=== PATIENT | male | born 1955 | race Caucasian/White ===

== ENCOUNTER 2017-06-04 20:04 | Emergency (ER) | payer OTHER ==
[~2017-06-04] VITALS: Ht 188 cm; Wt 110.2 kg
[~2017-06-04 20:04] MED LIST: ONDA4TAB46 SL; OXYC1TAB3 PO; SERT50TA PO; TAMS0.4C38 PO
[2017-06-04 20:45] VITALS: TEMP 37.1; Ht 188 cm; Wt 110.2 kg
[2017-06-04] MEDS ORDERED: ONDANSETRON INJ 2 MG/ML 2 ML VIAL IV STA (21:12)
[2017-06-04] MEDS ORDERED: SODIUM CHLORIDE 0.9% 1000ML 1,000 ML IV STA (21:32)
[2017-06-04] MEDS ORDERED: MoRPHine SULFATE 4 MG/ML 1 ML CARP\\VIAL IV STA (21:32)
[2017-06-04 21:34] LABS: HEMATOCRIT 42.8 % (42-52); HEMOGLOBIN 15.1 g/dL (14.0-18.0); MEAN CELL VOLUME 85.8 fL (80-100); MEAN CORPUSCULAR HEMOGLOBIN 30.3 pg (25-34); MEAN CORPUSCULAR HGB CONC 35.3 g/dl (32-36); MEAN PLATELET VOLUME 9.4 fL (7.4-10.4); PLATELET COUNT 262 K/uL (130-400); RED CELL DISTRIBUTION WIDTH CV 13.3 % (11.5-14.5); RED CELL DISTRIBUTION WIDTH SD 41.8 fL (36.4-46.3); WHITE BLOOD COUNT 12.29 K/uL (4.8-10.8)
[2017-06-04 21:54] LABS: CALCIUM 9.4 mg/dl (8.5-10.1); CREATININE 1.64 mg/dl (0.60-1.40); POTASSIUM 3.9 mmol/L (3.5-5.1)
--- NOTE | 2017-06-04 22:41 | DIAGNOSTIC IMAGING REPORT ---
ABDOMEN AND PELVIS CT WITHOUT CONTRAST CT DOSE: 1837.79 mGy.cm HISTORY: Left flank pain, nausea, hx stones TECHNIQUE: Multiaxial CT images of the abdomen and pelvis were performed without the use of intravenous and oral contrast according to the standard department stone protocol. A dose lowering technique was utilized adhering to the principles of ALARA. COMPARISON STUDY: Abdomen and pelvis CT 04/26/2014. FINDINGS: A few linear densities at the lung bases suggestive of subsegmental atelectasis. No pneumoperitoneum. No pneumatosis. No suspicious lytic or blastic osseous lesions. Hepatic steatosis. The gallbladder, spleen, adrenal glands, and pancreas are unremarkable. There is a left retroaortic renal vein. No retroperitoneal lymphadenopathy. There are multiple punctate bilateral renal calculi with the largest on the right measuring 4 mm. No right-sided hydronephrosis. Normal bladder. Mild left hydronephrosis secondary to an obstructing 5 mm stone within the proximal left ureter. This is best seen on image 108. No definite bowel wall thickening or obstruction. A few sigmoid diverticula. The appendix appears surgically absent. Bilateral renal lesions are incompletely characterized on this noncontrast study but appear to be similar to the prior study. Statistically these represent cysts. IMPRESSION: 1. An obstructing 5 mm stone within the proximal left ureter resulting in mild left hydronephrosis. 2. Bilateral nephrolithiasis. 3. Bilateral renal lesions/cysts are again noted. These are not significantly changed. Electronically signed by: Trey Guillen M.D. 06/04/2017 10:40 PM Dictated Date/Time: 06/04/2017 10:33 PM
[2017-06-04] MEDS ORDERED: OXYCODONE IR HOME PACK PO STA (23:00)
[2017-06-04] MEDS ORDERED: TAMSULOSIN HCL 0.4 MG CAP PO STA (23:00)
[2017-06-04] MEDS ORDERED: ONDANSETRON HOME PACK 4MG OD TAB PO STA (23:00)
[2017-06-04] MEDS ORDERED: TAMS0.4C38 PO (23:03)
[2017-06-04] MEDS ORDERED: OXYC1TAB3 PO (23:03)
[2017-06-04] MEDS ORDERED: ONDA4TAB10 SL (23:03)
[2017-06-04 23:04] VITALS: BP 120/63; PULSE 70; O2SAT 96
--- NOTE | 2017-06-04 23:04 | EMERGENCY ROOM VISIT NOTE ---
History First contact with patient: 21:21 Chief Complaint: FLANK PAIN Stated Complaint: KIDNEY PAIN- LEFT SIDE History of Present Illness The patient is a 62 year old male who presents to the Emergency Room via private vehicle accompanied by with complaints of "kidney pain-left side". The patient states that he has a history of kidney stones, and notes that for the past week he has had a dull pain in his left flank. He states that now just prior to arrival he developed abrupt onset of left flank pain. He notes that he could not find a comfortable position. He rates the overall pain as a 7 /10, and notes that he vomited in the waiting room. Since then his pain has subsided and is now 1-2/10. He states that he notes some urinary urgency, and minimal burning. He notes that his pain is now moving lower. Review of Systems A complete 10-point Review of Systems was discussed with the patient, with pertinent positives and negatives listed in the History of Present Illness. All remaining Review of Systems questions can be considered negative unless otherwise specified. Past Medical/Surgical History Medical Problems: (1) Kidney stone Social History Smoking Status: Never Smoker Marital Status: Housing Status: lives with family Current/Historical Medications Scheduled Ondasetron Odt (Zofran Odt), 4 MG SL Q6H Sertraline (Zoloft), 50 MG PO QAM Tamsulosin Hcl (Flomax), 0.4 MG PO DAILY Tamsulosin Hcl (Flomax), 0.4 MG PO DAILY Scheduled PRN Ondansetron Hcl (Zofran), 4 MG SL Q6 PRN for Nausea Oxycodone Immediate Rel Tab (Roxicodone Ir), 1-2 TAB PO Q4H PRN for Severe Pain Oxycodone Ir (Roxicodone Ir), 1-2 TAB PO Q4H PRN for Pain Physical Exam Vital Signs Date Time Temp Pulse Resp B/P (MAP) Pulse Ox O2 Delivery O2 Flow Rate FiO2 06/04/17 23:04 70 16 120/63 96 Room Air 06/04/17 20:45 37.1 71 18 149/93 94 Room Air Physical Exam VITAL SIGNS - Vital signs and nursing notes were reviewed. Stable. GENERAL -62-year-old male appearing his stated age who is in no acute distress. Communicates well with provider and answers questions appropriately. SKIN - Without rashes. No petechial rashes. ABDOMEN - Abdominal contour normal without pulsations or visible masses. BS normoactive all four quadrants. No tenderness, palpable masses, hepatosplenomegaly, or ascites noted. MUSCULOSKELETAL: No CVA tenderness. Medical Decision & Procedures ER Provider Diagnostic Interpretation: ABDOMEN AND PELVIS CT WITHOUT CONTRAST CT DOSE: 1837.79 mGy.cm HISTORY: Left flank pain, nausea, hx stones TECHNIQUE: Multiaxial CT images of the abdomen and pelvis were performed without the use of intravenous and oral contrast according to the standard department stone protocol. A dose lowering technique was utilized adhering to the principles of ALARA. COMPARISON STUDY: Abdomen and pelvis CT 04/26/2014. FINDINGS: A few linear densities at the lung bases suggestive of subsegmental atelectasis. No pneumoperitoneum. No pneumatosis. No suspicious lytic or blastic osseous lesions. Hepatic steatosis. The gallbladder, spleen, adrenal glands, and pancreas are unremarkable. There is a left retroaortic renal vein. No retroperitoneal lymphadenopathy. There are multiple punctate bilateral renal calculi with the largest on the right measuring 4 mm. No right-sided hydronephrosis. Normal bladder. Mild left hydronephrosis secondary to an obstructing 5 mm stone within the proximal left ureter. This is best seen on image 108. No definite bowel wall thickening or obstruction. A few sigmoid diverticula. The appendix appears surgically absent. Bilateral renal lesions are incompletely characterized on this noncontrast study but appear to be similar to the prior study. Statistically these represent cysts. IMPRESSION: 1. An obstructing 5 mm stone within the proximal left ureter resulting in mild left hydronephrosis. 2. Bilateral nephrolithiasis. 3. Bilateral renal lesions/cysts are again noted. These are not significantly changed. Electronically signed by: Trey Guillen M.D. 06/04/2017 10:40 PM Dictated Date/Time: 06/04/2017 10:33 PM Laboratory Results 06/04/17 21:15 06/04/17 21:15 Test 06/04/17 21:15 Red Blood Count 4.99 M/uL (4.7-6.1) Mean Corpuscular Volume 85.8 fL (80-100) Mean Corpuscular Hemoglobin 30.3 pg (25-34) Mean Corpuscular Hemoglobin Concent 35.3 g/dl (32-36) RDW Standard Deviation 41.8 fL (36.4-46.3) RDW Coefficient of Variation 13.3 % (11.5-14.5) Mean Platelet Volume 9.4 fL (7.4-10.4) Urine Color YELLOW Urine Appearance CLEAR (CLEAR) Urine pH 5.0 (4.5-7.5) Urine Specific [place] 1.026 (1.000-1.030) Urine Protein NEG (NEG) Urine Glucose (UA) NEG (NEG) Urine Ketones TRACE (NEG) Urine Occult Blood TRACE (NEG) Urine Nitrite NEG (NEG) Urine Bilirubin NEG (NEG) Urine Urobilinogen NEG (NEG) Urine Leukocyte Esterase NEG (NEG) Urine WBC (Auto) 1-5 /hpf (0-5) Urine RBC (Auto) 0-4 /hpf (0-4) Urine Hyaline Casts (Auto) 1-5 /lpf (0-5) Urine Epithelial Cells (Auto) 0-5 /lpf (0-5) Urine Bacteria (Auto) NEG (NEG) Anion Gap 7.0 mmol/L (3-11) Est Creatinine Clear Calc Drug Dose 62.5 ml/min Estimated GFR () 51.5 Estimated GFR (Non- 44.5 BUN/Creatinine Ratio 15.5 (10-20) Calcium Level 9.4 mg/dl (8.5-10.1) Medications Administered Medications (Trade) Dose Ordered Sig/Alonzo Route Start Time Stop Time Status Last Admin Dose Admin Ondansetron HCl (Zofran Inj) 4 mg NOW STAT IV 06/04/17 21:12 06/04/17 21:13 DC 06/04/17 21:39 4 MG Morphine Sulfate (MoRPHine SULFATE INJ) 4 mg NOW STAT IV 06/04/17 21:32 06/04/17 21:33 DC 06/04/17 21:39 4 MG Sodium Chloride 1,000 ml @ 999 mls/hr Q1H1M STAT IV 06/04/17 21:32 06/04/17 22:32 DC 06/04/17 21:39 999 MLS/HR Medical Decision Patient was seen and evaluated as above. He presents to us today with left flank pain. He is well on exam. He presents with what is likely a ureteral stone. IV access was initiated, and the above workup was performed. He was given morphine and Zofran. He was given fluids. CT scan was obtained and reveals a 5 mm left proximal ureter stone. His pain has been minimal here. There is no concerning leukocytosis as it is just elevated at 12.29. No concerning anemia. Patient metabolic panel reveals BUN and creatinine elevation. This was discussed with the patient, and he is to have these repeated with his family doctor once the kidney stone passes. It is possible this is secondary to the obstruction. Urine reveals trace occult blood and trace ketones. Otherwise negative. I do not suspect an infection on top of the stone. He was offered inpatient management and prefers to go home to try passed a stone. He is to call his urologist that is already established a follow-up tomorrow. He'll be given oxycodone, Flomax and Zofran. He is to use [id number] stool softener. Pt. was Educated upon management, had questions answered prior to discharge, and was discharged home in good condition. No red flags in the [place] drug monitoring system. Case was discussed with the attending physician In the evaluation and treatment of this patient the following differential diagnoses were entertained: renal calculi, diverticulitis, AAA, among others. Impression Primary Impression: Left flank pain Additional Impression: 5mm ureteral stone Departure Information Dispostion Home / Self-Care Condition GOOD Prescriptions Ondasetron Odt (ZOFRAN ODT) 4 Mg Tab 4 MG SL Q6H for Nausea, #15 TAB Prov: Reed Lee PA-C 06/04/17 Tamsulosin Hcl (FLOMAX) 0.4 Mg Cap 0.4 MG PO DAILY for 14 Days, #14 CAP Prov: Reed Lee PA-C 06/04/17 Oxycodone Ir (Roxicodone Ir) 5 Mg Tab 1-2 TAB PO Q4H Y for Pain, #15 TAB For Initial Treatment Prov: Reed Lee PA-C 06/04/17 Referrals Efrain Worley M.D. (PCP) Mariola Dupont MD Patient Instructions [facility] Additional Instructions You have been treated in the Emergency Department today for a Kidney Stone ( Nephrolithiais). []You have received pain medicine in the emergency department which impairs your ability to operate a vehicle. It is illegal for you to drive after receiving these medicines. You have been prescribed Oxy IR to be used for pain control. This is a narcotic medication. You cannot drive or consume alcohol while on this medicine. This medicine should only be used for pain that cannot be controlled with over-the- counter pain medicines. Please take stool softener with this. Please stay well hydrated. You have been prescribed to be used for any nausea or vomiting. Take as prescribed. You have been prescribed Flomax 0.4 mg to be taken ONCE daily. This medicine has been prescribed as it can help relax the smooth muscles of the urinary tract increasing transit time of the kidney stone. For pain control, you can use the following [id number] medicines (if >12 yo): - Regular strength (325mg/tab) Tylenol (acetaminophen) 2 tabs every 4-6 hours as needed. Do not exceed 12 tablets in a 24 hour period. Avoid taking more than 3 grams (3000 mg) of Tylenol per day. This includes any other sources of acetaminophen you may take on a regular basis. You have been provided a strainer and specimen collection cup. You should strain your urine to collect any passed stones. Your stones can be placed into the specimen cup and taken to your Urologist for further evaluation. You should contact the Urologist's office tomorrow to establish a follow-up appointment from today's Emergency Department visit. Return to the Emergency Department if your symptoms persist despite the treatment plan outlined above or if you develop the following symptoms: intractable pain, fever, chills, or large amounts of blood in your urine. Problem Qualifiers
[2017-06-08] MEDS ORDERED: GLC/500 PO (08:47)
== END 2017-06-04 23:20 | disposition home or self-care (01) ==
LOC: C.EDB 20:05 → C.EDC 23:20
DX: N13.2 Hydronephrosis with renal and ureteral calculous obstruction (principal)

== ENCOUNTER 2017-06-10 05:06 | Day surgery (SDC) | payer OTHER ==
[2017-06-08 08:49] VITALS: BMI 32.0
[~2017-06-10] VITALS: Ht 185.4 cm; Wt 112.3 kg
[~2017-06-10 05:06] MED LIST changes: +GLC/500 PO
[2017-06-10 05:33] VITALS: BP 142/77; PULSE 62; TEMP 36.6; O2SAT 96; Ht 185.4 cm; Wt 112.3 kg
[2017-06-10] MEDS ORDERED: CEFAZOLIN 2000MG IV PUSH 15 ML IV SCH (06:00)
[2017-06-10] MEDS ORDERED: SODIUM CHLORIDE 0.9% 1000ML 1,000 ML IV SCH (06:00)
[2017-06-10] MEDS ORDERED: MIDAZOLAM HCL 1 MG/ML 2ML VIAL ONE (06:41)
[2017-06-10] MEDS ORDERED: FENTANYL CITRATE INJ 50 MCG/1 ML 2 ML VIAL ONE (06:41)
[2017-06-10] MEDS ORDERED: Cysto-Conray II 17.2% 250ML BOTTLE ONE (06:49)
[2017-06-10] MEDS ORDERED: EpHEDrine SULFATE INJ 50 MG/ML AMP IV PRN (07:00)
[2017-06-10] MEDS ORDERED: ONDANSETRON INJ 2 MG/ML 2 ML VIAL IV PRN (07:00)
[2017-06-10] MEDS ORDERED: FENTANYL CITRATE INJ 50 MCG/1 ML 2 ML VIAL IV PRN (07:00)
[2017-06-10] MEDS ORDERED: ATROPINE SULFATE 0.1 MG/ML 5ML SYR IV PRN (07:00)
--- NOTE | 2017-06-10 07:01 | History & Physical Bridge Note ---
H&P Re-Evaluation Bridge Note: I have examined the patient, reviewed the History & Physical and in the interval since the performance of the History & Physical I have noted the following changes of clinical significance: No changes noted
[2017-06-10] MEDS ORDERED: EpHEDrine SULFATE INJ 50 MG/ML AMP ONE (07:53)
[2017-06-10] MEDS ORDERED: PROPOFOL IV EMULSION 10 MG/ML 20 ML VIAL IV ONE (07:54)
[2017-06-10] MEDS ORDERED: DEXAMETHASONE SOD INJ 4 MG/ML VIAL ONE (07:54)
[2017-06-10] MEDS ORDERED: ONDANSETRON INJ 2 MG/ML 2 ML VIAL ONE (07:54)
[2017-06-10] MEDS ORDERED: LIDOCAINE HCL 2% 2 ML VIAL (20MG/ML) ONE (07:54)
[2017-06-10] MEDS ORDERED: BELLADONNA/OPIUM SUPP 60 MG SUPP PR ONE (08:43)
--- NOTE | 2017-06-10 08:58 | [facility] Operative Report ---
Operative Report Operative Date Jun 10, 2017. Pre-Operative Diagnosis Left Ureteral stone urethral stricture Kidney stones Post-Operative Diagnosis Left Ureteral stone urethral stricture Kidney stones + Urethral Stricture Procedure(s) Performed Cystoscopy, Left Ureteroscopy, Laser Lithotripsy, Basket Stone Extraction, Stent Placement, Difficult Whittaker Placement Surgeon Dr. Dupont Hourly Shift Surgeon(s) none Estimated Blood Loss 2 ML Findings circumfirential narrowing of the bulbar urethra without visible scar Fluids 800 Specimens A. Left Ureteral stone fragments- for chemical analysis Drains 14 fr ambler tip whittaker, 6 fr 24 centimeter double j stent on string. Anesthesia Type General Complication(s) none Disposition yes Indications left 5mm ureteral stone which did not pass on med therapy. Description of Procedure Patient was given general LMA and placed in lithotomy position. His genitals were prepped and draped in sterile fashion. Time out held with team. I placed a 21 fr rigid cystoscope to urethra and upon leaving the penile urethra the urethra caliber narrowed circumferentially. I could not pass the 21 fr scope. I was able to pass a 17 fr rigid scope to bladder and it is also tight thru the bulbar urethra. I passed a stiff wire to bladder thru sheath as a urethral guidewire and removed scope. I passed a 18 fr flexible cystoscope following the wire. The UOs are normal location and slit shape. I then passed a wire to the left kidney. There is a radio-opaque stone in the mid ureter which the wire passes easily. I then removed cystoscope. I passed a dual lumen cath to calibrate the UO and pass a second wire to left kidney. I passed a flexible ureteroscope over the second wire to the mid ureter. I found his dark oval stone in the mid ureter. I used a 200 micron holmium laser to fragment the stone into about 8 pieces. I used a 2.4 fr zero tip basket to remove the stone fragments from ureter and drop them in the bladder. I then passed the ureteroscope to the kidney and removed 2 small stones from the kidney. I then placed a 17 fr cystoscope to bladder and rinsed out the stone fragments to be sent for chemical analysis. I removed the cystoscope and placed a 24 centimeter 6 Fr double J stent easily with the string on. I left bladder full and attempted 18 and 16 fr ambler tip foleys. Neither will pass the bulbar urethra. I used a catheter punch to make a ambler tip out of a 14 fr catheter and that passed easily into the bladder over the stiff wire. I inflated balloon with 7mL of water. I then concluded case. I placed a belladonna and opium suppository for post-op pain. He transferred to recovery under my escort, in stable condition. Plan: Home today Pyridium for dysuria x 3 days flomax daily oral pain meds as needed whittaker until Thursday am, remove whittaker and stent at home. ASA 2 clean contaminated case 1 minute 20 seconds fluoro ancef antibiotic warehouse operations associate I attest to the content of the Intraoperative Record and any orders documented therein. Any exceptions are noted below.
--- NOTE | 2017-06-10 09:05 | DIAGNOSTIC IMAGING REPORT ---
KUB CLINICAL HISTORY: LEFT SIDE LASER/LITHO AND STENT PLACEMENT stent placement TECHNIQUE: Image intensifier usage for laser lithotripsy and stent placement COMPARISON STUDY: None FINDINGS: Image intensifier was utilized for laser lithotripsy and left ureteral stent placement. IMPRESSION: Left ureteral laser lithotripsy and successful stent placement. The above report was generated using voice recognition software. It may contain grammatical, syntax or spelling errors. Electronically signed by: Rodolfo Pollard M.D. 06/10/2017 9:04 AM Dictated Date/Time: 06/10/2017 9:03 AM
[2017-06-10] MEDS ORDERED: NITR1CAP16 PO (09:06)
[2017-06-10] MEDS ORDERED: PHEN-775 PO (09:06)
--- NOTE | 2017-06-10 09:07 | Discharge Instructions ---
Discharge Instructions Date of Service Jun 10, 2017. Admission Reason for Admission: Kidney Stone Discharge Discharge Diagnosis / Problem: urethral stricture, left mid ureteral stone, kidney stones Discharge Goals Goal(s): Decrease discomfort, Improve disease control Activity Recommendations Activity Limitations: resume your previous activity Lifting Limitations: none Exercise/Sports Limitations: none May Resume Sexual Activity: after one week Shower/Bathe: no limitations Driving or Machine Use: resume 1 day after discharge . Instructions / Follow-Up Instructions / Follow-Up remove whittaker and stent on string Thursday am at home or come to [facility] office for removal 8am. start pyridium and macrobid prescriptions Thursday am. urine and urethral drainage may be bloody for days Current Hospital Diet Patient's current hospital diet: Discharge Diet Recommended Diet: Regular Diet Fluid Restriction: None Procedures Procedures Performed: Cystoscopy, Left Ureteroscopy, Laser Lithotripsy, Basket Stone Extraction, Stent Placement, Difficult Whittaker Placement Pending Studies Studies pending at discharge: yes List of pending studies: stone anslysis Medical Emergencies . Who to Call and When: Medical Emergencies: If at any time you feel your situation is an emergency, please call 911 immediately. . Non-Emergent Contact Non-Emergency issues call your: Urologist ([phone]) Call Non-Emergent contact if: temperature is above 100.5, your pain is not controlled . . "Provider Documentation" section prepared by Mariola Dupont. . VTE Core Measure Inpt VTE Proph given/why not?: SCD's
[2017-06-10 09:55] VITALS: BP 142/74; PULSE 70; TEMP 36.4; O2SAT 98
--- NOTE | 2017-06-10 10:08 | Anesthesiology Progress Note ---
Anesthesia Post Op Note Date & Time Jun 10, 2017 at 10:08 Vital Signs Pain Intensity: 0 Vital Signs Past 12 Hours Date Time Temp Pulse Resp B/P (MAP) Pulse Ox O2 Delivery O2 Flow Rate FiO2 06/10/17 09:40 70 17 133/68 96 Room Air 06/10/17 09:35 70 17 147/87 96 Room Air 06/10/17 09:25 36.3 70 17 137/87 96 Room Air 06/10/17 09:15 70 17 133/67 99 Oxymask 10 06/10/17 09:05 74 17 143/71 99 Oxymask 10 06/10/17 08:58 36.5 87 17 155/81 97 Oxymask 10 06/10/17 05:33 36.6 62 18 142/77 (98) 96 Room Air Notes Mental Status: alert / awake / arousable, participated in evaluation Pt Amnestic to Procedure: Yes Nausea / Vomiting: adequately controlled Pain: adequately controlled Airway Patency, RR, SpO2: stable & adequate BP & HR: stable & adequate Hydration State: stable & adequate Anesthetic Complications: no major complications apparent
[2017-06-10 10:25] VITALS: BP 155/74; PULSE 67; O2SAT 98
[2017-06-10] MEDS ORDERED: KETOROLAC TROMETHAMINE 30 MG/ML VIAL ONE (10:32)
[2017-06-10] MEDS ORDERED: NURSING VERBAL MED ORDER ONE (10:45)
[2017-06-10 10:55] VITALS: BP 147/65; PULSE 75; TEMP 36.5; O2SAT 97
== END 2017-06-10 11:05 | disposition home or self-care (01) ==
LOC: C.ACU 05:06
PROVIDERS: ATTEND Urology
DX: N20.1 Calculus of ureter (principal); N20.0 Calculus of kidney; N35.9 Urethral stricture, unspecified; E11.9 Type 2 diabetes mellitus without complications; E29.1 Testicular hypofunction; Z83.3 Family history of diabetes mellitus; Z82.49 Family history of ischemic heart disease and other diseases of the circulatory system; Z79.899 Other long term (current) drug therapy; Z79.84 Long term (current) use of oral hypoglycemic drugs

== ENCOUNTER 2017-12-12 19:04 | Emergency (ER) | payer OTHER ==
[~2017-12-12] VITALS: Ht 188 cm; Wt 111.9 kg
[~2017-12-12 19:04] MED LIST changes: +OXYC-737 PO; -OXYC1TAB3 PO
[2017-12-12 19:06] VITALS: TEMP 38.1; Ht 188 cm; Wt 111.9 kg
[2017-12-12] MEDS ORDERED: SODIUM CHLORIDE 0.9% 1000ML 1,000 ML IV STA (19:19)
[2017-12-12] MEDS ORDERED: CEFTRIAXONE SOD INJ 1 GM ADDVIAL IV STA (19:19)
[2017-12-12] MEDS ORDERED: ACETAMINOPHEN 500 MG TAB PO STA (19:19)
[2017-12-12] MEDS ORDERED: KETOROLAC TROMETHAMINE 30 MG/ML VIAL IV STA (19:19)
[2017-12-12 19:23] VITALS: O2SAT 98
--- NOTE | 2017-12-12 19:25 | EMERGENCY ROOM VISIT NOTE ---
History Report prepared by Nacho: Babar Marrero Under the Supervision of: Dr. Vikas Nur M.D. First contact with patient: 19:09 Chief Complaint: CARDIAC ASSESSMENT Stated Complaint: REFERRED TO GET EKG, POSSIBLE UTI History of Present Illness The patient is a 62 year old white male with a past medical history of diabetes , kidney stones, anxiety, appendicitis with appendectomy, and vasectomy who presents to the Emergency Room with complaints of a persistent fever that began about 30 hours ago. The patient's states that he spiked a peak fever of 102.0 degrees F yesterday and has also had "shaking chills." He continues to complain of a back ache and headache. The patient states that he took himself to the [facility] this evening for these symptoms. He was also noticing some "burning" with urination and had a urinalysis performed. This was concerning for a UTI. The patient notes that he takes Zoloft for anxiety. He denies any cough, sick contacts, or recent travels. Source of History: patient Onset: 30 hours ago Position: head Quality: ache (headache), burning (with uriantion) Associated Symptoms: + fevers, + chills Review of Systems See HPI for pertinent positives and negatives. A total of ten systems were reviewed and were otherwise negative. Past Medical & Surgical Medical Problems: (1) Kidney stone Hx of Diabetes. Family History Diabetes mellitus Social History Smoking Status: Never Smoker Marital Status: Housing Status: lives with family Current/Historical Medications Scheduled Ciprofloxacin (Ciprofloxacin HCl), 1 TAB PO BID Metformin Hcl (Glucophage), 500 MG PO QAM Sertraline (Zoloft), 50 MG PO QAM Tamsulosin Hcl (Flomax), 0.4 MG PO QAM Scheduled PRN Ondansetron Hcl (Zofran), 4 MG SL Q6 PRN for Nausea Oxycodone Immediate Rel Tab (Roxicodone Ir), 1-2 TAB PO Q4H PRN for Severe Pain Allergies Coded Allergies: No Known Allergies (Unverified , 06/10/17) Physical Exam Vital Signs Date Time Temp Pulse Resp B/P (MAP) Pulse Ox O2 Delivery O2 Flow Rate FiO2 12/12/17 19:38 102 12/12/17 19:23 98 Room Air 12/12/17 19:15 98 Room Air 12/12/17 19:06 38.1 101 18 119/68 97 Room Air Physical Exam GENERAL: Awake, alert, well-appearing, NAD HENT: Normocephalic, atraumatic. EYES: Normal conjunctiva. Sclera non-icteric. PERRL. No anisocoria. NECK: Supple. No nuchal rigidity. FROM. RESPIRATORY: CTAB, no rhonchi, wheezing, crackles CARDIAC: RRR, no MRG ABDOMEN: Soft, NTND, BS+ MSK: No chest wall TTP, no LE edema. No CVA tenderness to palpation. NEURO: GCS 15, CN 2-12 intact, moves all 4s on command SKIN: Actinic keratoses, no evidence of any Janeway lesions, Osler noes, no evidence of splinter hemorrhages of his nails. Medical Decision & Procedures ER Provider Diagnostic Interpretation: Radiology results as stated below per my review and radiologist interpretation: CHEST ONE VIEW PORTABLE CLINICAL HISTORY: Fever, sepsis COMPARISON STUDY: April 2014 FINDINGS: The cardiac and mediastinal contours are normal. There is no evidence of focal pulmonary consolidation. There is no evidence of failure. No pleural effusions are visualized.[ IMPRESSION: No active disease in the chest. Electronically signed by: Rudy Verma M.D. 12/12/2017 7:41 PM Dictated Date/Time: 12/12/2017 7:41 PM Laboratory Results 12/12/17 19:20 Red Blood Count 4.92, Mean Corpuscular Volume 85.6, Mean Corpuscular Hemoglobin 29.3, Mean Corpuscular Hemoglobin Concent 34.2, Mean Platelet Volume 9.9, Neutrophils (%) (Auto) 79.0, Lymphocytes (%) (Auto) 11.6, Monocytes (%) (Auto) 8.3, Eosinophils (%) (Auto) 0.3, Basophils (%) (Auto) 0.2, Neutrophils # (Auto) 9.17, Lymphocytes # (Auto) 1.35, Monocytes # (Auto) 0.96, Eosinophils # (Auto) 0.04, Basophils # (Auto) 0.02 12/12/17 19:20 Test 12/12/17 19:20 White Blood Count 11.61 K/uL (4.8-10.8) Red Blood Count 4.92 M/uL (4.7-6.1) Hemoglobin 14.4 g/dL (14.0-18.0) Hematocrit 42.1 % (42-52) Mean Corpuscular Volume 85.6 fL (80-100) Mean Corpuscular Hemoglobin 29.3 pg (25-34) Mean Corpuscular Hemoglobin Concent 34.2 g/dl (32-36) Platelet Count 172 K/uL (130-400) Mean Platelet Volume 9.9 fL (7.4-10.4) Neutrophils (%) (Auto) 79.0 % Lymphocytes (%) (Auto) 11.6 % Monocytes (%) (Auto) 8.3 % Eosinophils (%) (Auto) 0.3 % Basophils (%) (Auto) 0.2 % Neutrophils # (Auto) 9.17 K/uL (1.4-6.5) Lymphocytes # (Auto) 1.35 K/uL (1.2-3.4) Monocytes # (Auto) 0.96 K/uL (0.11-0.59) Eosinophils # (Auto) 0.04 K/uL (0-0.5) Basophils # (Auto) 0.02 K/uL (0-0.2) RDW Standard Deviation 41.4 fL (36.4-46.3) RDW Coefficient of Variation 13.3 % (11.5-14.5) Immature Granulocyte % (Auto) 0.6 % Immature Granulocyte # (Auto) 0.07 K/uL (0.00-0.02) Anion Gap 11.0 mmol/L (3-11) Est Creatinine Clear Calc Drug Dose 83.9 ml/min Estimated GFR () 73.0 Estimated GFR (Non- 63.0 BUN/Creatinine Ratio 13.3 (10-20) Calcium Level 8.6 mg/dl (8.5-10.1) Laboratory results reviewed by me Medications Administered Medications (Trade) Dose Ordered Sig/Alonzo Route Start Time Stop Time Status Last Admin Dose Admin Acetaminophen (Tylenol Tab) 1,000 mg NOW STAT PO 12/12/17 19:19 12/12/17 19:21 DC 12/12/17 19:36 1,000 MG Sodium Chloride 1,000 ml @ 999 mls/hr Q1H1M STAT IV 12/12/17 19:19 12/12/17 20:19 12/12/17 19:35 999 MLS/HR Ketorolac Tromethamine (Toradol Inj) 30 mg NOW STAT IV 12/12/17 19:19 12/12/17 19:21 DC 12/12/17 19:35 30 MG Ceftriaxone Sodium (Rocephin Inj) 1 gm NOW STAT IV 12/12/17 19:19 12/12/17 19:21 DC 12/12/17 19:35 1 GM ECG Per My Interpretation Indication: tachycardia Rate (beats per minute): 89 Rhythm: normal sinus Findings: other (Normal intervals, normal axis, no STS or TWI) ED Course 1909: The patient was evaluated in room A10. A complete history and physical exam was performed. 1999: I reevaluated the patient. Discussed results and discharge instructions: He verbalized understanding and agreement. The patient is ready for discharge. Medical Decision The patient is a 62 year old white male with a past medical history of diabetes , kidney stones, anxiety, appendicitis with appendectomy, and vasectomy who presents to the Emergency Room with complaints of a persistent fever that began about 30 hours ago. Nursing notes reviewed. Ancillary studies and prior records reviewed. Differential diagnosis: Etiologies such as viral syndrome, otitis, pharyngitis, pneumonia, influenza, meningitis, urinary tract infection, sepsis, bacteremia, as well as others were entertained Patient was seen and evaluated the bedside. The patient was presenting with chief complaint of some burning urination. The patient had been seen at [facility] for he did have a urinalysis checked that showed a likely UTI. The physician's surgical assistant at the facility was concerned about a possible murmur and so wanted to be referred to be evaluated. On exam I do not hear any murmur. The patient does not have any evidence of Janeway lesions or Osler nodes nodes. No evidence of any splinter hemorrhages. The patient is otherwise fairly well-appearing. The patient was febrile tachycardic. Patient did have blood work completed along with IV fluids and medications for symptom control. Upon reassessment the patient is feeling improved. The patient was advised to continue his antibiotics at home. Patient was told return if any worsening or persistent symptoms. Patient was also given warning signs for possible endocarditis although based on the patient's history and physical exam this is less likely in a more likely related to UTI with a possible incidental finding of a murmur noted by separate provider. Patient was given strict follow-up, discharge, and return precautions. All questions were answered. Patient was deemed suitable for outpatient follow-up at this time. Patient agreed with the plan of care and was safely discharged home. Medication Reconcilliation Current Medication List: was personally reviewed by me Blood Pressure Screening Patient's blood pressure: Normal blood pressure Impression Primary Impression: UTI (urinary tract infection) Scribe Attestation The scribe's documentation has been prepared under my direction and personally reviewed by me in its entirety. I confirm that the note above accurately reflects all work, treatment, procedures, and medical decision making performed by me. Departure Information Dispostion Home / Self-Care Prescriptions Ciprofloxacin (Ciprofloxacin HCl) 500 Mg Tab 1 TAB PO BID for 7 Days, #14 TAB Prov: Vikas Nur M.D. 12/12/17 Referrals Tim Whitten M.D. (PCP) Patient Instructions ED UTI Cystitis Male, My [facility] Additional Instructions Please return to the emergency department if you have worsening or recurrent symptoms not amenable to at-home treatment. Please call for a follow-up appointment with her primary care physician. Please take your medications as prescribed. If you have other concerns and/or complaints please feel free to also call your primary care physician's office or return the ED for further evaluation, management, and treatment. You may take 600 mg Ibuprofen every 6 hours as needed for pain/fever with food unless told by your physician not to take NSAIDs. You may take tylenol 650 mg every 6 hours as needed for pain/fever unless told by your physician to not take it or have liver problems. You may take motrin and tylenol separately or at the same time. Take your medications as prescribed. If taking an antibiotic consider taking a probiotic and/or eating yogurt, but at the least, please take with food as it can cause upset stomach. You have been examined and treated today on an emergency basis only. This is not a substitute for, or an effort to provide, complete comprehensive medical care. It is impossible to recognize and treat all injuries or illnesses in a single emergency department visit. It is therefore important that you follow up closely with [facility], your PCP, and/or your specialist(s). Call as soon as possible for an appointment. Thank you for your time and consideration. I look forward to speaking with you again soon. Please don't hesitate to call us if you have any questions. Problem Qualifiers Primary Impression: UTI (urinary tract infection) Urinary tract infection type: acute cystitis Hematuria presence: without hematuria Qualified Codes: N30.00 - Acute cystitis without hematuria
[2017-12-12 19:33] LABS: BASO % 0.2 %; BASO ABS # 0.02 K/uL (0-0.2); EOS % 0.3 %; EOS ABS # 0.04 K/uL (0-0.5); HEMATOCRIT 42.1 % (42-52); HEMOGLOBIN 14.4 g/dL (14.0-18.0); IG# 0.07 K/uL (0.00-0.02); LYMPH % 11.6 %; LYMPH ABS # 1.35 K/uL (1.2-3.4); MEAN CELL VOLUME 85.6 fL (80-100); MEAN CORPUSCULAR HEMOGLOBIN 29.3 pg (25-34); MEAN CORPUSCULAR HGB CONC 34.2 g/dl (32-36); MEAN PLATELET VOLUME 9.9 fL (7.4-10.4); MONO % 8.3 %; MONO ABS # 0.96 K/uL (0.11-0.59); NEUT ABS # 9.17 K/uL (1.4-6.5); PLATELET COUNT 172 K/uL (130-400); RED CELL DISTRIBUTION WIDTH CV 13.3 % (11.5-14.5); RED CELL DISTRIBUTION WIDTH SD 41.4 fL (36.4-46.3); WHITE BLOOD COUNT 11.61 K/uL (4.8-10.8)
--- NOTE | 2017-12-12 19:42 | DIAGNOSTIC IMAGING REPORT ---
CHEST ONE VIEW PORTABLE CLINICAL HISTORY: Fever, sepsis COMPARISON STUDY: April 2014 FINDINGS: The cardiac and mediastinal contours are normal. There is no evidence of focal pulmonary consolidation. There is no evidence of failure. No pleural effusions are visualized.[ IMPRESSION: No active disease in the chest. Electronically signed by: Rudy Verma M.D. 12/12/2017 7:41 PM Dictated Date/Time: 12/12/2017 7:41 PM
[2017-12-12 19:49] LABS: CALCIUM 8.6 mg/dl (8.5-10.1); CREATININE 1.23 mg/dl (0.60-1.40); POTASSIUM 3.7 mmol/L (3.5-5.1)
[2017-12-12] MEDS ORDERED: CPR/500 PO (20:10)
[2017-12-12 20:44] VITALS: BP 107/60; PULSE 88; O2SAT 96
--- NOTE | 2017-12-15 13:40 | Pharmacy Progress Note ---
ED Pharmacist Culture FollowUp Date of Service: Dec 15, 2017. Patient was sent home with a prescription for ciprofloxacin, which should cover the Enterobacter growing from the patient's urine culture.
== END 2017-12-12 20:44 | disposition home or self-care (01) ==
LOC: C.EDB 19:06 → C.EDA 20:44
DX: N30.00 Acute cystitis without hematuria (principal); R51 Headache; E11.9 Type 2 diabetes mellitus without complications; Z79.84 Long term (current) use of oral hypoglycemic drugs; Z79.899 Other long term (current) drug therapy; Z87.442 Personal history of urinary calculi